=== PATIENT | male | born 1990 | race Caucasian/White ===

== ENCOUNTER 2018-04-15 16:15 | Emergency (ER) | payer SELFPAY ==
[2018-04-15] MEDS ORDERED: KETOROLAC 30 MG/ML VIAL IVP ONE (16:29)
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
[2018-04-15 16:41] LABS: BASO % 0.4 % (0-6); EOS % 3.2 % (0-6); GRAN % 59.5 % (47-80); HEMATOCRIT 43.5 % (42.0-52.0); HEMOGLOBIN 14.8 gm/dl (14.0-18.0); MEAN CELL VOLUME 92.2 fl (81-97); MEAN CORPUSCULAR HEMOGLOBIN 31.4 pg (27-33); MEAN PLATELET VOLUME 9.3 fl (7.4-10.4); MONO % 6.9 % (0-9); PLATELET COUNT 264 K/uL (130-400); RED BLOOD COUNT 4.72 M/uL (4.40-5.70); RED CELL DISTRIBUTION WIDTH 12.5 % (11.5-14.5); WHITE BLOOD COUNT W/O DIFF 10.4 K/uL (4.2-12.2)
[2018-04-15 17:01] LABS: BLOOD UREA NITROGEN 18 mg/dL (6-20); EST GLOMERULAR FILTRATION RATE > 60 mL/min
[2018-04-15 17:04] LABS: GLUCOSE,RANDOM 97 mg/dL (74-109)
[2018-04-15 17:06] LABS: C-REACTIVE PROTEIN 0.38 mg/dL (<0.5)
[2018-04-15 17:18] LABS: ERYTHROCYTE SEDIMENTATION RATE 2 mm/hr (0-15)
--- NOTE | 2018-04-17 08:56 | RADIOLOGY REPORT ---
EXAM: CHEST, TWO VIEWS HISTORY: PALPITATIONS. TECHNIQUE: Upright PA and lateral views of the chest were obtained. Comparison: None. FINDINGS: The cardiomediastinal silhouette is normal in size and configuration. The pulmonary vasculature is nondilated. The lungs and pleural spaces are clear. The osseous structures are intact. Metallic piercing jewelry is noted at the level of the left nipple. IMPRESSION: NO RADIOGRAPHIC EVIDENCE OF ACUTE CARDIOPULMONARY DISEASE. JOB NUMBER: [id number] MTDD
== END 2018-04-15 17:16 | disposition home or self-care (01) ==
LOC: ER 16:15
DX: R00.2 Palpitations (principal); R07.89 Other chest pain
CPT/HCPCS: 71046; 80048; 83735; 84484; 85025; 85651; 86140; 93005; 93010; 96374; 99284; J1885